=== PATIENT | female | born 2000 | race Two or more races ===

== ENCOUNTER 2024-10-06 08:59 | Emergency (ER) | payer SELFPAY ==
[2024-10-06 09:44] LABS: BASOPHILS ABSOLUTE AUTO 0.06 K/uL (0.00-0.20); BASOPHILS PERCENT AUTO 0.6 % (0.0-1.0); HEMATOCRIT 36.5 % (37.0-47.0); HEMOGLOBIN 12.9 g/dL (12.0-16.0); IMMATURE GRAN ABSOLUTE AUTO 0.05 K/uL (0.00-0.05); IMMATURE GRAN PERCENT AUTO 0.5 % (0.0-0.4); LYMPHOCYTES ABSOLUTE AUTO 3.62 K/uL (1.00-4.80); LYMPHOCYTES PERCENT AUTO 35.8 % (24.0-44.0); MEAN CORPUSCULAR HEMOGLOBIN 29.9 pg (28.0-32.0); MEAN CORPUSCULAR HGB CONC 35.3 g/dL (32.0-36.0); MEAN CORPUSCULAR VOLUME 84.7 fL (83.0-99.0); MEAN PLATELET VOLUME 9.9 fL (9.4-12.3); MONOCYTES PERCENT AUTO 6.9 % (0.0-8.0); NEUTROPHILS ABSOLUTE AUTO 5.59 K/uL (1.80-7.70); NEUTROPHILS PERCENT AUTO 55.2 % (41.0-71.0); PLATELET COUNT,PLT 269 K/uL (150-400); RED BLOOD CELL COUNT 4.31 M/uL (4.10-5.30); WHITE BLOOD CELL COUNT,WBC 10.12 K/uL (3.9-11.3)
[2024-10-06 09:58] LABS: APPEARANCE,URINE HAZY; BILIRUBIN,URINE NEGATIVE (NEGATIVE); COLOR,URINE YELLOW; GLUCOSE,URINE NEGATIVE (NEGATIVE); KETONES,URINE NEGATIVE (NEGATIVE); LEUKOCYTE ESTERASE,URINE NEGATIVE (NEGATIVE); NITRITE,URINE NEGATIVE (NEGATIVE); OCCULT BLOOD,URINE NEGATIVE (NEGATIVE); PROTEIN,URINE NEGATIVE (NEGATIVE); UROBILINOGEN,URINE 0.2 EU/dL (<2.0)
[2024-10-06 10:14] LABS: A/G RATIO 0.8 (0.9-1.6); BILIRUBIN TOTAL 0.6 mg/dL (0.2-1.0); CARBON DIOXIDE,CO2 24.7 mmol/L (21.0-32.0); CREATININE 0.7 mg/dL (0.6-1.0); EST CRCL DRUG DOSING (CG) 91.9 mL/min; POTASSIUM,K 3.9 mmol/L (3.5-5.1); PROTEIN TOTAL,TP 6.8 g/dL (6.4-8.2)
[2024-10-06 10:47] LABS: CANDIDA DNA PROBE NEGATIVE (NEGATIVE); GARDNERELLA DNA PROBE NEGATIVE (NEGATIVE); TRICHOMONAS DNA PROBE NEGATIVE (NEGATIVE)
[2024-10-06 11:31] LABS: C. TRACHOMATIS BY PCR NOT DETECTED; N. GONORRHOEAE BY PCR NOT DETECTED
== END 2024-10-06 12:00 | disposition home or self-care (01) ==
LOC: MW.ED 08:59
DX: O20.0 Threatened abortion (principal); Z3A.14 14 weeks gestation of pregnancy
CPT/HCPCS: 36415; 76801; 76801-26; 80053; 81003; 85025; 86900; 86901; 87480; 87491; 87510; 87591; 87660; 99284

== ENCOUNTER 2025-04-01 15:40 | Inpatient (IN) | payer MEDICAID ==
[2025-04-01 16:58] LABS: MEAN PLATELET VOLUME 11.4 fL (9.4-12.3); NRBC ABSOLUTE 0.00 K/uL (0.00-0.02); NRBC PERCENT 0.0 /100WBC (0.0-0.2); PLATELET COUNT,PLT 197 K/uL (150-400); RED BLOOD CELL COUNT 4.40 M/uL (4.10-5.30); WHITE BLOOD CELL COUNT,WBC 9.65 K/uL (3.9-11.3)
[2025-04-01 17:22] LABS: A/G RATIO 0.7 (0.9-1.6); ALANINE AMINOTRANSFERASE,ALT 24.0 IU/L (14-63); ASPARTATE AMNIOTRANSFERASE,AST 20.0 IU/L (15-37); BILIRUBIN TOTAL 0.3 mg/dL (0.2-1.0); BLOOD UREA NITROGEN,BUN 12.0 mg/dL (7.0-18.0); CARBON DIOXIDE,CO2 22.7 mmol/L (21.0-32.0); CHLORIDE,CL 104.0 mmol/L (98-107); CREATININE 0.9 mg/dL (0.6-1.0); EST CRCL DRUG DOSING (CG) 74.26 mL/min; GLUCOSE RANDOM 117.0 mg/dL (74-106); POTASSIUM,K 4.3 mmol/L (3.5-5.1); PROTEIN TOTAL,TP 6.2 g/dL (6.4-8.2); SODIUM,NA 138.0 mmol/L (136-145)
[2025-04-01 17:26] LABS: ESTIMATED GFR 90.0 mL/min (>60)
[2025-04-01 19:45] LABS: CREATININE,URINE RAND 112.0 mg/dL; PROTEIN CREATININE RATIO,URINE 0.2; PROTEIN,URINE RANDOM 24.0 mg/dL (<11.9)
[2025-04-01] MEDS ORDERED: ePHEDrine 50 MG/ML SDV IVPUSH PRN (22:01)
[2025-04-01] MEDS ORDERED: Ondansetron 4 MG/2 ML SDV IVPUSH PRN (22:11)
[2025-04-01] MEDS ORDERED: Carboprost Tromethamine 250 MCG/1 mL Vial IM PRN (22:11)
[2025-04-01] MEDS ORDERED: Sodium Chloride 0.9% 2.5 ML Syringe FLUSH PRN (22:11)
[2025-04-01] MEDS ORDERED: Water For Irrigation,Sterile 1,000 ML Container IRR PRN (22:11)
[2025-04-01] MEDS ORDERED: Sodium Chloride 0.9% 10 ML Syringe FLUSH PRN (22:11)
[2025-04-01] MEDS ORDERED: Terbutaline 1 MG/ML SDV SUBCUT PRN (22:11)
[2025-04-01] MEDS ORDERED: Oxytocin/0.9 % Sodium Chloride 30 UNIT/500 ML BAG IV SCH (22:15)
[2025-04-01] MEDS ORDERED: dexmedeTOMIDine HCl 200 MCG/2 ML SDV EPIDUR SCH (22:15)
[2025-04-01] MEDS ORDERED: Ropivacaine HCl/PF 400 MG in Premix Bag 1 BAG EPIDUR SCH (22:15)
[2025-04-01] MEDS: Misoprostol 25 MCG (1/4 of 100 MCG) Tab VAG PRN (22:34)
[2025-04-01] MEDS: Misoprostol 25 MCG (1/4 of 100 MCG) Tab PO PRN (23:34)
[2025-04-02] MEDS: Misoprostol 25 MCG (1/4 of 100 MCG) Tab VAG PRN (02:43)
[2025-04-02] MEDS: Lactated Ringers 1,000 ML IV SCH (11:50)
[2025-04-03 18:11] LABS: BASOPHILS ABSOLUTE AUTO 0.06 K/uL (0.00-0.20); BASOPHILS PERCENT AUTO 0.5 % (0.0-1.0); EOSINOPHILS ABSOLUTE AUTO 0.08 K/uL (0.00-0.45); EOSINOPHILS PERCENT AUTO 0.7 % (0.0-6.0); IMMATURE GRAN ABSOLUTE AUTO 0.06 K/uL (0.00-0.05); IMMATURE GRAN PERCENT AUTO 0.5 % (0.0-0.4); LYMPHOCYTES ABSOLUTE AUTO 2.54 K/uL (1.00-4.80); LYMPHOCYTES PERCENT AUTO 21.7 % (24.0-44.0); MEAN PLATELET VOLUME 11.5 fL (9.4-12.3); MONOCYTES ABSOLUTE AUTO 0.83 K/uL (0.00-0.80); MONOCYTES PERCENT AUTO 7.1 % (0.0-8.0); NEUTROPHILS ABSOLUTE AUTO 8.11 K/uL (1.80-7.70); NEUTROPHILS PERCENT AUTO 69.5 % (41.0-71.0); NRBC ABSOLUTE 0.00 K/uL (0.00-0.02); NRBC PERCENT 0.0 /100WBC (0.0-0.2); PLATELET COUNT,PLT 214 K/uL (150-400); RED BLOOD CELL COUNT 4.58 M/uL (4.10-5.30); WHITE BLOOD CELL COUNT,WBC 11.68 K/uL (3.9-11.3)
[2025-04-03 18:36] LABS: A/G RATIO 0.7 (0.9-1.6); ALANINE AMINOTRANSFERASE,ALT 23.0 IU/L (14-63); ASPARTATE AMNIOTRANSFERASE,AST 20.0 IU/L (15-37); BILIRUBIN TOTAL 0.5 mg/dL (0.2-1.0); BLOOD UREA NITROGEN,BUN 15.0 mg/dL (7.0-18.0); CARBON DIOXIDE,CO2 22.2 mmol/L (21.0-32.0); CHLORIDE,CL 104.0 mmol/L (98-107); CREATININE 0.8 mg/dL (0.6-1.0); EST CRCL DRUG DOSING (CG) 83.54 mL/min; GLUCOSE RANDOM 85.0 mg/dL (74-106); POTASSIUM,K 4.3 mmol/L (3.5-5.1); PROTEIN TOTAL,TP 6.4 g/dL (6.4-8.2); SODIUM,NA 134.0 mmol/L (136-145)
[2025-04-03 18:38] LABS: ESTIMATED GFR 104.0 mL/min (>60)
[2025-04-04] MEDS ORDERED: ePHEDrine 50 MG/ML SDV IVPUSH PRN (00:09)
[2025-04-04] MEDS ORDERED: dexmedeTOMIDine HCl 200 MCG/2 ML SDV EPIDUR SCH (00:15)
[2025-04-04] MEDS ORDERED: Ropivacaine HCl/PF 400 MG in Premix Bag 1 BAG EPIDUR SCH (00:15)
[2025-04-04] MEDS: Butorphanol 1 MG/ML SDV IVPUSH PRN (16:53)
[2025-04-04] MEDS: Oxytocin/0.9 % Sodium Chloride 30 UNIT/500 ML BAG IV SCH (17:41)
[2025-04-05] MEDS: Ropivacaine HCl/PF 400 MG in Premix Bag 1 BAG EPIDUR SCH (12:15)
[2025-04-05] MEDS ORDERED: ePHEDrine 50 MG/ML SDV IVPUSH PRN (12:51)
[2025-04-05] MEDS ORDERED: dexmedeTOMIDine HCl 200 MCG/2 ML SDV EPIDUR SCH (13:00)
[2025-04-06] MEDS: ceFAZolin 2 GM in Water For Injection, Sterile 20 ML IVPUSH ONE (01:22)
[2025-04-06] MEDS ORDERED: Ketorolac 30 MG/ML SDV ONE (02:12)
[2025-04-06] MEDS ORDERED: Ondansetron 4 MG/2 ML SDV ONE (02:12)
[2025-04-06] MEDS ORDERED: Morphine PF 10 MG/10 ML SDV ONE (02:12)
[2025-04-06] MEDS ORDERED: fentaNYL 100 MCG/2 ML SDV ONE (02:12)
[2025-04-06] MEDS ORDERED: Ropivacaine 0.5% 5 MG/ML 30 ML SDV ONE (02:12)
[2025-04-06] MEDS ORDERED: Oxytocin 10 Units/1 ML SDV ONE (02:12)
[2025-04-06] MEDS: DEXTROSE 5% IV SCH (02:38)
[2025-04-06] MEDS: WATER IV SCH (02:38)
[2025-04-06] MEDS: GENTAMICIN IV SCH (02:38)
[2025-04-06 04:11] LABS: PH,UMBILICAL ARTERIAL 7.33 (7.18-7.38); PH,UMBILICAL VENOUS 7.32 (7.25-7.45)
[2025-04-06] MEDS ORDERED: fentaNYL 100 MCG/2 ML SDV IVPUSH PRN (04:13)
[2025-04-06] MEDS ORDERED: Nalbuphine 10 MG/1 ML Vial IVPUSH PRN (04:13)
[2025-04-06] MEDS ORDERED: Albuterol 0.083% 2.5 MG/3 ML Neb Soln NEB PRN (04:13)
[2025-04-06] MEDS ORDERED: diphenhydrAMINE 50 MG/ML SDV IVPUSH PRN (04:13)
[2025-04-06] MEDS ORDERED: fentaNYL 50 MCG/ML SDV IVPUSH PRN (04:13)
[2025-04-06] MEDS ORDERED: Naloxone 0.4 MG/ML SDV IVPUSH PRN (04:13)
[2025-04-06] MEDS ORDERED: Acetaminophen/oxyCODONE 325-5 MG Tab PO PRN (04:13)
[2025-04-06] MEDS ORDERED: Ondansetron 4 MG/2 ML SDV IVPUSH PRN ×3 (04:13→04:34)
[2025-04-06] MEDS ORDERED: Sodium Chloride 0.9% 10 ML Syringe FLUSH PRN (04:34)
[2025-04-06] MEDS ORDERED: Carboprost Tromethamine 250 MCG/1 mL Vial IM PRN (04:34)
[2025-04-06] MEDS ORDERED: Sodium Chloride 0.9% 2.5 ML Syringe FLUSH PRN (04:34)
[2025-04-06] MEDS ORDERED: Clindamycin Phosphate in D5W 900 MG in Premix Bag 1 BAG IV SCH (04:45)
[2025-04-06] MEDS ORDERED: Ketorolac 30 MG/ML SDV IVPUSH SCH (04:45)
[2025-04-06] MEDS ORDERED: Oxytocin/0.9 % Sodium Chloride 30 UNIT/500 ML BAG IV SCH (04:45)
[2025-04-06] MEDS: Ketorolac 30 MG/ML SDV IVPUSH SCH (08:05)
[2025-04-06] MEDS: Clindamycin Phosphate in D5W 900 MG in Premix Bag 1 BAG IV SCH (09:22)
[2025-04-07 06:20] LABS: BASOPHILS ABSOLUTE AUTO 0.04 K/uL (0.00-0.20); BASOPHILS PERCENT AUTO 0.2 % (0.0-1.0); EOSINOPHILS ABSOLUTE AUTO 0.03 K/uL (0.00-0.45); EOSINOPHILS PERCENT AUTO 0.1 % (0.0-6.0); IMMATURE GRAN ABSOLUTE AUTO 0.17 K/uL (0.00-0.05); IMMATURE GRAN PERCENT AUTO 0.7 % (0.0-0.4); LYMPHOCYTES ABSOLUTE AUTO 2.43 K/uL (1.00-4.80); LYMPHOCYTES PERCENT AUTO 10.7 % (24.0-44.0); MEAN PLATELET VOLUME 11.6 fL (9.4-12.3); MONOCYTES ABSOLUTE AUTO 1.29 K/uL (0.00-0.80); MONOCYTES PERCENT AUTO 5.7 % (0.0-8.0); NEUTROPHILS ABSOLUTE AUTO 18.80 K/uL (1.80-7.70); NEUTROPHILS PERCENT AUTO 82.6 % (41.0-71.0); NRBC ABSOLUTE 0.00 K/uL (0.00-0.02); NRBC PERCENT 0.0 /100WBC (0.0-0.2); PLATELET COUNT,PLT 165 K/uL (150-400); RED BLOOD CELL COUNT 3.39 M/uL (4.10-5.30); WHITE BLOOD CELL COUNT,WBC 22.76 K/uL (3.9-11.3)
[2025-04-07 14:00] LABS: BASOPHILS ABSOLUTE AUTO 0.03 K/uL (0.00-0.20); BASOPHILS PERCENT AUTO 0.1 % (0.0-1.0); EOSINOPHILS ABSOLUTE AUTO 0.06 K/uL (0.00-0.45); EOSINOPHILS PERCENT AUTO 0.2 % (0.0-6.0); IMMATURE GRAN ABSOLUTE AUTO 0.18 K/uL (0.00-0.05); IMMATURE GRAN PERCENT AUTO 0.7 % (0.0-0.4); LYMPHOCYTES ABSOLUTE AUTO 2.69 K/uL (1.00-4.80); LYMPHOCYTES PERCENT AUTO 11.1 % (24.0-44.0); MEAN PLATELET VOLUME 11.3 fL (9.4-12.3); MONOCYTES ABSOLUTE AUTO 0.96 K/uL (0.00-0.80); MONOCYTES PERCENT AUTO 4.0 % (0.0-8.0); NEUTROPHILS ABSOLUTE AUTO 20.32 K/uL (1.80-7.70); NEUTROPHILS PERCENT AUTO 83.9 % (41.0-71.0); NRBC ABSOLUTE 0.00 K/uL (0.00-0.02); NRBC PERCENT 0.0 /100WBC (0.0-0.2); PLATELET COUNT,PLT 178 K/uL (150-400); RED BLOOD CELL COUNT 3.50 M/uL (4.10-5.30); WHITE BLOOD CELL COUNT,WBC 24.24 K/uL (3.9-11.3)
[2025-04-08 05:57] LABS: BASOPHILS ABSOLUTE AUTO 0.05 K/uL (0.00-0.20); BASOPHILS PERCENT AUTO 0.2 % (0.0-1.0); EOSINOPHILS ABSOLUTE AUTO 0.15 K/uL (0.00-0.45); EOSINOPHILS PERCENT AUTO 0.7 % (0.0-6.0); IMMATURE GRAN ABSOLUTE AUTO 0.15 K/uL (0.00-0.05); IMMATURE GRAN PERCENT AUTO 0.7 % (0.0-0.4); LYMPHOCYTES ABSOLUTE AUTO 2.92 K/uL (1.00-4.80); LYMPHOCYTES PERCENT AUTO 13.8 % (24.0-44.0); MEAN PLATELET VOLUME 11.7 fL (9.4-12.3); MONOCYTES ABSOLUTE AUTO 0.78 K/uL (0.00-0.80); MONOCYTES PERCENT AUTO 3.7 % (0.0-8.0); NEUTROPHILS ABSOLUTE AUTO 17.07 K/uL (1.80-7.70); NEUTROPHILS PERCENT AUTO 80.9 % (41.0-71.0); NRBC ABSOLUTE 0.00 K/uL (0.00-0.02); NRBC PERCENT 0.0 /100WBC (0.0-0.2); PLATELET COUNT,PLT 222 K/uL (150-400); RED BLOOD CELL COUNT 3.78 M/uL (4.10-5.30); WHITE BLOOD CELL COUNT,WBC 21.12 K/uL (3.9-11.3)
[2025-04-08] MEDS: Measles, Mumps & Rubella Vaccine 0.5 ML SDV SUBCUT ONE (11:03)
[2025-04-08] MEDS: Lanolin 100% Cream 7 GM Tube TOP PRN (11:04)
== END 2025-04-08 11:30 | disposition home or self-care (01) | DRG 786 ==
LOC: MW.OB 15:40 → MW.OBCHECK 15:40 → MW.OB 22:11 → OBSVTOIN 04-06 03:07 → MW.OB 04-06 17:45 → MW.MS 04-07 08:34 → MW.OB 04-07 08:34
PROVIDERS: ADMIT Obstetrics & Gynecology; ATTEND Obstetrics & Gynecology
PROC: 10D00Z1 Extraction of Products of Conception, Low, Open Approach (ICD-10-PCS; 2025-04-06)
PROC: 10907ZC Drainage of Amniotic Fluid, Therapeutic from Products of Conception, Via Natural or Artificial Opening (ICD-10-PCS; 2025-04-06)
PROC: 10H07YZ Insertion of Other Device into Products of Conception, Via Natural or Artificial Opening (ICD-10-PCS; 2025-04-06)
PROC: 4A1HXCZ Monitoring of Products of Conception, Cardiac Rate, External Approach (ICD-10-PCS; 2025-04-06)
PROC: 0U7C7DJ Dilation of Cervix with Intraluminal Device, Temporary, Via Natural or Artificial Opening (ICD-10-PCS; principal; 2025-04-06 03:00)
DX: O13.4 Gestational [pregnancy-induced] hypertension without significant proteinuria, complicating childbirth (principal); O41.1230 Chorioamnionitis, third trimester, not applicable or unspecified; Z3A.39 39 weeks gestation of pregnancy; Z37.0 Single live birth; O76 Abnormality in fetal heart rate and rhythm complicating labor and delivery; O62.1 Secondary uterine inertia; O99.214 Obesity complicating childbirth; O77.0 Labor and delivery complicated by meconium in amniotic fluid
CPT/HCPCS: 01967; 01968; 36415; 59025; 59200; 59514; 64488; 76815; 76815-26; 80053; 82570; 82803; 84156; 85025; 85027; 86592; 86850; 86900; 86901; 90471; 90707; A9270-GY; J0166; J0456; J0595; J0665; J0690; J0736; J1100; J1580; J1885; J2003; J2270; J2274; J2405; J2590; J2795; J3010; J7120

== ENCOUNTER 2025-08-09 12:08 | Emergency (ER) | payer MEDICAID | END 2025-08-09 13:11 | disposition home or self-care (01) | LOC: MW.ED 12:08 | DX: J02.9 Acute pharyngitis, unspecified (principal) | CPT/HCPCS: 87428-QW; 87651; 99283 ==